=== PATIENT | female | born 1990 | race Caucasian/White ===

== ENCOUNTER 2018-05-23 07:19 | Emergency (ER) | payer OTHER ==
[2018-05-23 07:34] VITALS: BP 130/82
--- NOTE | 2018-05-23 08:01 | UC ---
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 Since January, pt has been having almost daily frontal headaches behind her eyes, occasionally radiating to her posterior head. She states usually waking up with a CONTRERAS (the pain does not wake her), it resolves spontaneously, then returns in the evening. Pain is rated as 7/8 out of 10 at its worst. She was on rollercoasters this past weekend, which aggravated her CONTRERAS. Upon arrival she had a CONTRERAS but it has mostly resolved at bedside. Associated sx: subjective fever; joint aches; skin sensitivity. Denies chills, weakness, numbness. Pt was seen by her PCPs office yesterday but wasnt satisfied with her care, so she came today to discuss Lyme, other possibilities. 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 She used to see a neurologist in [place]. - History Of Current Complaint Chief Complaint: Balwinder Stated Complaint: HEADACHE,JOINT PAIN Time Seen by Provider: 05/23/18 07:50 Hx Obtained From: Patient Onset/Duration: Lasting Weeks - acute on chronic, Still Present Currently Pain Is: Mild Pain Intensity: 3 Pain Scale Used: 0-10 Numeric Timing: Intermittent, Lasting: Location of Headache: Frontal Associated Signs And Symptoms: Positive: Fever - subjective, Other (Noted In Comments) - pos: joint aches, skin sensitivity. neg: chills, numbness, weakness - Allergies/Home Medications Allergies/Adverse Reactions: Allergies Allergy/AdvReac Type Severity Reaction Status Date / Time No Known Allergies Allergy Verified 05/23/18 07:34 Home Medications: Home Medications Norethindrone-Ethinyl Estrad [Nortrel 1-35 28 Tablet] 1 each PO 05/23/18 [ History] PMH/Surg Hx/FS Hx/Imm Hx Previously Healthy: No - ta barrett syndrome Other Respiratory History: neg: COPD Neurological History: Migraine - Surgical History Surgical History: None - Family History Known Family History: Positive: Other - migraines Negative: Hypertension, Diabetes - Social History Occupation: Employed Full-time Lives: With Family Alcohol Use: Occasionally Substance Use Type: None Smoking Status (MU): Never Smoked Tobacco Review of Systems Constitutional: Fever - subjective, Other - neg: chills Musculoskeletal: Arthralgia Neurological: Headache, Other - neg: weakness, numbness All Other Systems Reviewed And Are Negative: Yes Physical Exam - Summary Physical Exam Summary: General: well-appearing, no pain distress Skin: warm, color reflects adequate perfusion, dry Head: normal Eyes: EOMI, CARLITOS ENT: normal Neck: supple, nontender Respiratory: CTA, breath sounds present Cardiovascular: RRR Abdomen: soft, nontender Bowel: present Musculoskeletal: normal, strength/ROM intact Neurological: sensory/motor intact, A&O x3 Psychological: affect/mood appropriate Triage Information Reviewed: Yes Vital Signs: Initial Vital Signs Temp 98.2 F 05/23/18 07:30 Pulse 89 05/23/18 07:30 Resp 18 05/23/18 07:30 BP 130/82 05/23/18 07:30 Pulse Ox 100 05/23/18 07:30 Vital Signs Reviewed: Yes Headache Course/Dx - Course Course Of Treatment: BP noted. Medications reviewed. Allergies noted. PATIENT REPORTS PMD IS SCHEDULING A BRAIN MRI; SHE DECLINES A HEAD CT TODAY. CRP, CBC, CMP AND LYME SCREEN PENDING. - Differential Dx/Diagnosis Provider Diagnoses: HEADACHE. ARTHRALGIAS Discharge - Sign-Out/Discharge Documenting (check all that apply): Patient Departure - DC All imaging exams completed and their final reports reviewed: No Studies - Discharge Plan Condition: Stable Disposition: HOME Patient Education Materials: Acute Headache (ED), Arthralgia (ED) Referrals: Jennifer Wells MD [Primary Care Provider] - Additional Instructions: FOLLOW UP WITH YOUR DOCTOR. YOUR CRP, CBC, CMP AND LYME SCREEN RESULTS ARE PENDING. GET RECHECKED FOR ANY WORSENING OF YOUR CONDITION OR QUESTIONS OR CONCERNS. - Billing Disposition and Condition Condition: STABLE Disposition: Home - Attestation Statements Document Initiated by Scribe: Yes Documenting Scribe: Irma An Provider For Whom Scribe is Documenting (Include Credential): Brooks Clemente MD Scribe Attestation: Irma Woodson, joeyed for Brooks Clemente MD on 05/23/18 at 0933. Scribe Documentation Reviewed: Yes Provider Attestation: The documentation as recorded by the Irma bradshaw accurately reflects the service I personally performed and the decisions made by me, Brooks Clemente MD
[2018-05-23 11:37] LABS: ABS Basophils 0.1 10^3/ul (0-0.2); ABS Eosinophils 0.1 10^3/ul (0-0.6); ABS Lymphocytes 1.4 10^3/ul (1.0-4.8); ABS Monocytes 0.2 10^3/ul (0-0.8); ABS Neutrophils 3.5 10^3/ul (1.5-7.7); ABS Nucleated RBC 0 10^3/ul; Eosinophil % 1.7 % (0-6); Hematocrit 39 % (35-47); Lymphocyte % 26.9 % (25-47); Mean Corpuscular HGB Conc 34 g/dl (31-36); Mean Corpuscular Hemoglobin 29 pg (27-31); Mean Corpuscular Volume 87 fL (80-97); Mean Platelet Volume 8.9 um3 (7.4-10.4); Nucleated Red Blood Cells % 0.4; Platelet Count 292 10^3/ul (150-450); Red Blood Count 4.46 10^6/ul (4.00-5.40); Red Cell Distribution Width 12 % (10.5-15); White Blood Count 5.4 10^3/ul (3.5-10.8)
[2018-05-23 11:47] LABS: EGFR Non-African American 94.1 (>60)
== END 2018-05-23 08:22 | disposition home or self-care (01) ==
LOC: UCEAST 07:19
DX: R51 Headache (principal); M25.50 Pain in unspecified joint; R50.9 Fever, unspecified; R20.9 Unspecified disturbances of skin sensation
CPT/HCPCS: 36415; 80053; 85025; 86140; 86618; 99211; G0463

== ENCOUNTER 2019-06-20 08:04 | Emergency (ER) | payer OTHER ==
[2019-06-20 08:16] VITALS: BP 125/78
--- NOTE | 2019-06-20 08:32 | UC ---
Throat Pain/Nasal Eric HPI - HPI Summary HPI Summary: 28-year-old woman comes in with a chief complaint of 5 days of upper respiratory tract infection symptoms. Started with runny nose sore throat and now it's gone into her chest. In the last day she's had a lot of chest congestion and coughing and difficulty reading up any sputum. She does have some yellow colored rhinorrhea. She reports wheezing. The cough and chest congestion or worse at night. She does short of breath due to the chest congestion. She has tried [id number] medications with minimal relief. Has used albuterol in the past when she has bronchitis. She does not have a diagnosis of asthma has not used albuterol except when she has bronchitis. Early this morning around 2 AM patient had some epigastric pain and felt like she needed to throw up. She was also having a coughing fit at that time and then when she stood up she passed out. No complaint of any chest pain or palpitations or injuries the fall. - History of Current Complaint Chief Complaint: UCRespiratory Stated Complaint: COUGH CONGESTION Time Seen by Provider: 06/20/19 08:16 Hx Last Menstrual Period: beginning of may Pain Intensity: 2 - Allergies/Home Medications Allergies/Adverse Reactions: Allergies Allergy/AdvReac Type Severity Reaction Status Date / Time No Known Allergies Allergy Verified 06/20/19 08:15 Home Medications: Home Medications Acetaminophen TAB* [Tylenol TAB*] 325 mg PO Q4H PRN 06/20/19 [History Confirmed 06/20/19] PMH/Surg Hx/FS Hx/Imm Hx Previously Healthy: Yes Endocrine History: Hypothyroidism - Surgical History Surgical History: None - Family History Known Family History: Positive: Other - migraines Negative: Hypertension, Diabetes - Social History Alcohol Use: None Substance Use Type: None Smoking Status (MU): Never Smoked Tobacco Review of Systems All Other Systems Reviewed And Are Negative: Yes Constitutional: Positive: Other - SEE HPI Skin: Positive: Negative Eyes: Positive: Negative ENT: Positive: Sore Throat, Nasal Discharge, Sinus Congestion Respiratory: Positive: Shortness Of Breath, Cough, Other - SEE HPI Cardiovascular: Positive: Negative Gastrointestinal: Positive: Other - SEE HPI Motor: Positive: Negative Neurovascular: Positive: Negative Musculoskeletal: Positive: Negative Neurological: Positive: Negative Psychological: Positive: Negative Is Patient Immunocompromised?: No Physical Exam Triage Information Reviewed: Yes Appearance: No Pain Distress, Well-Nourished, Ill-Appearing - MILD Vital Signs: Initial Vital Signs Temp 98.6 F 06/20/19 08:10 Pulse 90 06/20/19 08:10 Resp 16 06/20/19 08:10 BP 125/78 06/20/19 08:10 Pulse Ox 100 06/20/19 08:10 Vital Signs Reviewed: Yes Eye Exam: Normal Eyes: Positive: Conjunctiva Clear ENT: Positive: Pharyngeal erythema, Nasal congestion, Nasal drainage, TMs normal Neck: Positive: Supple Respiratory: Positive: Lungs clear, Normal breath sounds, No respiratory distress, Other: - POSITIVE COUGH Cardiovascular: Positive: RRR Musculoskeletal: Positive: Strength Intact, ROM Intact Neurological: Positive: Alert, Muscle Tone Normal Psychological: Positive: Age Appropriate Behavior Skin Exam: Normal Throat Pain/Nasal Course/Dx - Course Course Of Treatment: DISCUSSED VIRAL VERSES BACTERIAL INFECTIONS AND THE ROLE OF ANTIBIOTICS. THE PATIENT PREFERS TO BE ON ANTIBIOTICS AT THIS TIME. Patient reports in the past she's also been on a steroid when the bronchitis with bronchospasm was at its worst. Plan is to treat with the albuterol and then if needed will take the steroid. Patient's episode of syncope sounds like a vasovagal syncope and this was discussed with the patient and therefore at this time were not doing any further investigation of the syncope. Patient follow-up with her primary care doctor and get reevaluated sooner if worse or any questions or concerns. - Differential Dx/Diagnosis Provider Diagnosis: Bronchitis with bronchospasm, Syncope Discharge ED - Sign-Out/Discharge Documenting (check all that apply): Patient Departure All imaging exams completed and their final reports reviewed: No Studies - Discharge Plan Condition: Stable Disposition: HOME Prescriptions: Azithromyxin YAW (NF) [Z-Yaw (Zithromax) 250 mg tabs #6] 2 tab PO .TODAY, THEN 1 DAILY #6 tab Fluconazole 150 MG TAB* [Diflucan 150 MG TAB*] 150 mg PO ONCE #2 tablet methylPREDNISolone [Medrol Dosepak 4 MG*] 0 mg PO .SEE YAW INSTRUCTION #1 yaw Patient Education Materials: Syncope (ED), Acute Bronchitis (ED), Bronchospasm (ED) Forms: *Work Release Referrals: Jennifer Wells MD [Primary Care Provider] - Additional Instructions: FOLLOW UP WITH YOUR DOCTOR IF NOT COMPLETELY IMPROVED. GET RECHECKED SOONER IF YOUR CONDITION WORSENS OR ANY QUESTIONS OR CONCERNS. - Billing Disposition and Condition Condition: STABLE Disposition: Home
== END 2019-06-20 08:40 | disposition home or self-care (01) ==
LOC: UCEAST 08:04
DX: J20.9 Acute bronchitis, unspecified (principal); R55 Syncope and collapse; E03.9 Hypothyroidism, unspecified
CPT/HCPCS: 99212; G0463